=== PATIENT | female | born 1980 | race Caucasian/White ===

== ENCOUNTER 2021-08-17 01:03 | Emergency (ER) | payer MEDICAID ==
[~2021-08-17] VITALS: Ht 172.7 cm; Wt 79.4 kg
--- NOTE | 2021-08-17 01:10 | NUR ---
BIBSELF C/O FEELING DIZZTY AND LIGHT HEADED, SOME CP X 3 HRS . PT A/OX4. BIBSELF C/O FEELING DIZZTY AND LIGHT HEADED, SOME CP X 3 HRS
--- NOTE | 2021-08-17 01:25 | NUR ---
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
[2021-08-17 02:01] LABS: BASOPHILS % (AUTO) 0.8 % (0.0-2.0); EOSINOPHILS % (AUTO) 3.4 % (0.0-6.0); HEMATOCRIT 41 % (33-45); HEMOGLOBIN 13.6 g/dL (11.5-14.8); LYMPHOCYTES # (AUTO) 1.5 K/uL (0.8-4.8); MEAN CORPUSCULAR HGB CONC 34 g/dl (31.0-36.0); MEAN CORPUSCULAR VOLUME 88 fL (82-100); MONOCYTES # (AUTO) 0.5 K/uL (0.1-1.30); MONOCYTES % (AUTO) 8.8 % (2.0-12.0); NEUTROPHILS # (AUTO) 3.5 K/uL (1.8-8.9); PLATELET COUNT (AUTO) 229 K/uL (150-450); WHITE BLOOD COUNT (AUTO) 5.7 K/uL (4.3-11.0)
[2021-08-17 02:26] LABS: CREATININE 1.1 mg/dL (0.6-1.3); POTASSIUM 3.8 mmol/L (3.5-5.1)
--- NOTE | 2021-08-17 02:57 | NUR ---
PT RETURNED TO ER BED [address]
--- NOTE | 2021-08-17 05:52 | NUR ---
Patient discharged to home in stable condition. Written and verbal after care instructions given. Patient verbalizes understanding of instruction.
[2021-08-17 06:13] VITALS: BP 112/17
== END 2021-08-17 06:13 | disposition home or self-care (01) ==
LOC: ER 01:06
DX: R42 Dizziness and giddiness (principal); R51.9 Headache, unspecified
CPT/HCPCS: 36415; 70450-TC; 80048-TC; 84702-TC; 85025-TC

== ENCOUNTER 2021-09-22 17:32 | Emergency (ER) | payer SELFPAY ==
[~2021-09-22] VITALS: Ht 172.7 cm; Wt 74.8 kg
--- NOTE | 2021-09-22 20:09 | NUR ---
CALLED DR. COLBERT REGARDING PT. AWAITING A CALL BACK
--- NOTE | 2021-09-22 20:58 | NUR ---
PAGED Jam Zapata for maxofacial consult. awaiting for his call back
--- NOTE | 2021-09-22 21:12 | NUR ---
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
[2021-09-22] MEDS ORDERED: CEPH500T PO (21:30)
--- NOTE | 2021-09-22 21:45 | NUR ---
Patient does not wish to proceed with medical care recommended by Dr. Carlisle and YANICK CHING DISPLAY AND BANNER DESIGNER . Patient given information related to possible complications, up to and including , which could occur as a result of leaving the hospital at this time. Patient verbalizes understanding of risks involved due to leaving against medical advice. Patient has signed AMA form.
[2021-09-22 21:46] VITALS: BP 110/77
== END 2021-09-22 21:46 | disposition left against medical advice (07) ==
LOC: ER 17:44
DX: S02.2XXA Fracture of nasal bones, initial encounter for closed fracture (principal); Z59.00 Homelessness unspecified; Z79.899 Other long term (current) drug therapy; X58.XXXA Exposure to other specified factors, initial encounter; Y93.89 Activity, other specified; Y92.89 Other specified places as the place of occurrence of the external cause; Y99.8 Other external cause status
CPT/HCPCS: 70486-TC; 84703-TC

== ENCOUNTER 2022-07-06 09:39 | Emergency (ER) | payer MEDICAID, OTHER ==
[~2022-07-06] VITALS: Ht 172.7 cm; Wt 79.4 kg
[~2022-07-06 09:39] MED LIST: CEPH500T PO
[2022-07-06] MEDS ORDERED: KETOROLAC TROMETHAMINE INJ 30 MG/ML VIAL ONE (10:41)
[2022-07-06] MEDS ORDERED: ACETAMINOPHEN 325 MG TABLET ONE (10:42)
[2022-07-06] MEDS ORDERED: ACETAMINOPHEN 325 MG TABLET PO ONE (11:00)
[2022-07-06] MEDS ORDERED: KETOROLAC TROMETHAMINE INJ 60 MG/2 ML VIAL IM ONE (11:00)
--- NOTE | 2022-07-06 11:02 | NUR ---
radiology at bedside for pelvic ultrasound
[2022-07-06 11:08] LABS: BASOPHILS % (AUTO) 0.3 % (0.0-2.0); EOSINOPHILS % (AUTO) 0.2 % (0.0-6.0); HEMATOCRIT 38 % (33-45); HEMOGLOBIN 12.6 g/dL (11.5-14.8); LYMPHOCYTES # (AUTO) 1.1 K/uL (0.8-4.8); LYMPHOCYTES % (AUTO) 7.3 % (20.0-44.0); MEAN CORPUSCULAR HGB CONC 33 g/dl (31.0-36.0); MEAN CORPUSCULAR VOLUME 87 fL (82-100); MONOCYTES # (AUTO) 0.8 K/uL (0.1-1.30); MONOCYTES % (AUTO) 5.6 % (2.0-12.0); NEUTROPHILS % (AUTO) 86.6 % (43.0-81.0); PLATELET COUNT (AUTO) 210 K/uL (150-450); RED BLOOD CELL COUNT(AUTO) 4.39 MIL/uL (4.0-5.2)
[2022-07-06 11:18] LABS: CALCIUM, SERUM 8.5 mg/dL (8.5-10.1); POTASSIUM 3.6 mmol/L (3.5-5.1)
[2022-07-06 11:31] LABS: COLOR,URINE YELLOW (YELLOW)
[2022-07-06 11:32] LABS: BILIRUBIN,URINE NEGATIVE (NEGATIVE); NITRITE, URINE NEGATIVE (NEGATIVE); PH,URINE 5.5 (5.0-8.0); PROTEIN,URINE NEGATIVE (NEGATIVE); UGLUCOSE NEGATIVE (NEGATIVE); UROBILINOGEN,URINE 0.2 EU/dL (0.2)
[2022-07-06 11:33] LABS: LEUKOCYTE ESTERASE ,URINE NEGATIVE (NEGATIVE)
--- NOTE | 2022-07-06 11:46 | NUR ---
Pt aware and updated with plan of care
[2022-07-06] MEDS ORDERED: IBUP-1953 PO (11:48)
[2022-07-06] MEDS ORDERED: CEPH500T PO (11:48)
[2022-07-06 11:56] VITALS: BP 105/60
[2022-07-06 12:26] LABS: BACTERIA,URINE Rare /HPF (None Seen); RBC,URINE 0-2 /HPF (0-2); SQUAMOUS EPITHELIAL CELL,UR Few /HPF (None Seen); WBC,URINE 0-2 /HPF (0-3)
== END 2022-07-06 11:58 | disposition home or self-care (01) ==
LOC: ER 09:46
DX: N73.2 Unspecified parametritis and pelvic cellulitis (principal)
CPT/HCPCS: 99285; 96372; 76882; 85025; 80048; 83605; 84703; 81001; 36415; J1885

== ENCOUNTER 2022-12-30 15:59 | Emergency (ER) | payer OTHER ==
[~2022-12-30] VITALS: Ht 172.7 cm; Wt 79.4 kg
[~2022-12-30 15:59] MED LIST changes: +IBUP-1953 PO
[2022-12-30 16:41] VITALS: BP 112/60; TEMP 97.9; O2SAT 99
[2022-12-30] MEDS ORDERED: MUPI15CR TP (17:06)
[2022-12-30] MEDS ORDERED: IBUP-1953 PO (17:06)
[2022-12-30] MEDS ORDERED: FLUC150T PO (17:06)
[2022-12-30] MEDS ORDERED: CLIN300C12 PO (17:06)
== END 2022-12-30 17:22 | disposition home or self-care (01) ==
LOC: ER 16:10
DX: L03.312 Cellulitis of back [any part except buttock and flank] (principal); Z79.899 Other long term (current) drug therapy